=== PATIENT | male | born 2000 | race Caucasian/White ===

== ENCOUNTER → 2024-10-28 | Outpatient (CLI) | payer OTHER, SELFPAY | END | disposition home or self-care (01) | LOC: LAB 15:12 | PROVIDERS: PCP Family Medicine; Referring Provider Nurse Practitioner Acute Care; Visit Provider Nurse Practitioner Acute Care | DX: R19.4 Change in bowel habit (principal) | CPT/HCPCS: 36415; 84443 ==

== ENCOUNTER → 2024-11-01 | Outpatient (CLI) | payer OTHER, SELFPAY ==
--- OUTSIDE RECORDS SUMMARY | 2024-11-01 07:24 | XMS RPT_ITS | CCD ---
Author Organization [facility] Care Team Providers Care Quahogger Name Role Phone Jerson Jha MD Primary Care Provider Morales Borrero MD Primary Care Provider Morales Borrero MD Primary Care Provider MORALES BORRERO Primary Care Unavailable MORALES BORRERO Referring Unavailable MORALES BORRERO Attending Unavailable MORALES BORRERO Primary Care Unavailable MORALES BORRERO Attending Unavailable MORALES BORRERO Primary Care Unavailable Morales Borrero MD Primary Care Provider Dr. Jerson Jha MD Referring Provider Odell AS400 ANALYST-CJessie Attending Provider Dr. Morales Borrero MD Primary Care Provider Jerson Jha Referring Unavailable Morales Borrero Primary Care Unavailable Jessie Bain Attending Unavailable Morales Borrero Primary Care Unavailable Jessie Bain Referring Unavailable Jessie Bain Attending Unavailable Medications Current Medications Medication Drug Class(es) Dates Sig (Normalized) Sig (Original) benzoyl peroxide 0.05 mg/mg / erythromycin 0.03 mg/mg topical gel (5 sources) Macrolide, Macrolide Antimicrobial Start: 10-22-2021 Erythromycin-Matt oyl Peroxide (BENZAMYCIN) gel Indications: Acne, unspecified acne type Apply to affected area twice daily. 46.6 g 2 10/22/2021 Active Comment on above: Apply to affected ar ea twice daily. fluconazole 100 mg oral tablet (5 sources) Azole Antifungal Start: 10-18-2022 take 3 tablets by mouth every week fluconazole (DIFLUCAN) 100 mg tablet Indications: Tinea versicolor Take 3 tablets by mouth one time a week. And repeat in one week 6 tablet 10/18/2022 Active Start: 08-19-2022 End: 08-22-2022 take 1 tablet by mouth once daily fluconazole (DIFLUCAN) 100 mg tablet Indications: Tinea versicolor Take 1 tablet by mouth once daily for 3 days. 3 tablet 0 08/19/2022 08/22/2022 Active Start: 11-02-2021 End: 11-05-2021 take 1 tablet by mouth once daily fluconazole (DIFLUCAN) 100 mg tablet Indications: Tinea versicolor Take 1 tablet by mouth once daily for 3 days. 3 tablet 0 11/02/2021 11/05/2021 Active Comment on above: Take 1 tablet by kevin th once daily for 3 days. Take 3 tablets by mo [facility] one time a week. And repeat in one week ketoconazole 20 mg/ml medicated shampoo (2 sources) Azole Antifungal Start: 10-19-19 ketoconazole (NIZORAL) 2 % shampoo Indications: Tinea versicolor Apply to rash for five minutes and then wash off x 3 days. 120 mL 10/18/2022 Active Comment on above: Apply to rash for fi ve minutes and then wash off x 3 days. meloxicam 15 mg oral tablet (2 sources) Nonsteroidal Anti-inflammatory Drug Start: 10-19-19 take 1 tablet by mouth once daily at mealtime meloxicam (MOBIC) 15 mg tablet Indications: Acute pain of right knee Take 1 tablet by mouth once daily. With food. 10 tablet 10/18/2022 Active Comment on above: Take 1 tablet by kevin th once daily. With food. Completed/Discontinued Medications Medication Drug Class(es) Dates Sig (Normalized) Sig (Original) acetaminophen 325 mg / HYDROcodone bitartrate 5 mg oral tablet (1 source) Opioid Agonist Start: 08-02-2013 End: 10-28-2024 Hydrocodone-Acetam inophen 1 TABLET tablet Discontinued 1 {tbl} PO EVERY 4 HOURS NEEDED as needed for Pain 30 0 August 02, 2013 12:00am October 28, 2024 2:54pm montelukast 10 mg oral tablet (1 source) Leukotriene Receptor Antagonist Start: 08-02-2013 End: 10-28-2024 take 1 tablet by mouth once daily Montelukast (Singulair) 10 MG tablet Discontinued 10 mg PO DAILY August 02, 2013 12:00am October 28, 2024 2:46pm Problems Active Problems Problem Classification Problem Date Documented Da te Episodic/Chronic Immunizations and screening for infectious disease (1 source) Vaccination needed; Translations: [Encounter for immunization] Episodic Mycoses (4 sources) Pityriasis versicolor; Translations: [Pityriasis versicolor] Onset: 10-18-2022 Episodic Other gastrointestinal disorders (2 sources) Altered bowel function; Translations: [Change in bowel habit] 10-28-2024 Episodic Other gastrointestinal disorders (1 source) Constipation; Translations: [Constipation, unspecified] 10-28-2024 Episodic Other gastrointestinal disorders (1 source) Change in bowel habit; Translations: [Change in bowel habit] Onset: 10-28-2024 Episodic Other non-traumatic joint disorders (3 sources) Pain in right knee; Translations: [Pain in joint, lower leg] Onset: 10-18-2022 Episodic Other skin disorders (1 source) Acne; Translations: [Acne, unspecified] Episodic Past or Other Problems Problem Classification Problem Date Documented Date Episodic/Chronic Abdominal pain (1 source) Abdominal pain; Translations: [Unspecified abdominal pain] Onset: 11-21-2009 Resolved: 06-19-2013 06-19-2013 Episodic Asthma (1 source) Cough variant asthma; Translations: [Cough variant asthma] Onset: 03-27-2011 Resolved: 02-12-2019 02-12-2019 Chronic Esophageal disorders (1 source) Gastroesophageal reflux disease; Translations: [Gastro-esophageal reflux disease without esophagitis] Onset: 10-30-2009 Resolved: 06-19-2013 06-19-2013 Chronic Fracture of lower limb (2 sources) Other, multiple and ill-defined fractures of lower limb, closed; Translations: [Knee fracture] Onset: 08-04-2013 Resolved: 01-31-2015 01-31-2015 Episodic Results Test Name Value Interpretation Reference Range Facil ity Thyroid Stim Hormone (TSH)on 10-28-2024 TSH 1.700 uIU/mL Normal 0.300-4.200 [facility] Comment on above: Performed By: #### L [id number] #### [facility] [place], [address] CNOVon 10-18-2022 CNOV Office Visit (FAMPWS ) ROSITA ROWELL ([id number]) 2000 M Date Time Provider Department 10/18/22 1:20 PM MORALES BORRERO During your visit today, we recorded the following information about you: Pulse Blood pressure Weight Height 75/minute 122/76 69.5 kg 1.74 m Morales Borrero MD 10/18/2022 1:53 PM Signed Patient presents with: Follow Up HPI: Patient presents today for office visit for follow up. Still with tinea versicolor on back. No itching. Seems to be spreading when weather got warm. Has not seen dermatology. Given Fluconazole 100 mg X 3 days in past. Started to fade but not all the away. And came back. Definitely did get improvement with diflucan in the past. Complaints of right knee pain X 1 month. No injury. Did a lot of walking about a month ago while on vacation. Thinks maybe this triggered it. Refers to pain as sharp. Comes and goes. Walking doesn't bother it. Hurts if bent for too long. No falls. No redness or warmth. Is slowly improving. No trauma. Not giving out. MEDICATIONS: Current Outpatient Medications Medication Sig Erythromycin-Benzoyl Peroxide (BENZAMYCIN) gel Apply to affected area twice daily. No current facility-administered medications for this visit. ALLERGIES: ALLERGIES No Known Allergies PAST MEDICAL HISTORY Diagnosis Date Asthma Leg fracture, left PMH - PAST MEDICAL HISTORY OF Normal color vision Right radial fracture PAST SURGICAL HISTORY Procedure Laterality Date NONE FAMILY HISTORY Problem Relation Age of Onset Heart Paternal Grandfather from lung CA other (OR) Paternal Uncle in 30's Social History Tobacco Use Smoking status: Never Smokeless tobacco: Never Tobacco comments: No smoking in family Substance Use Topics Alcohol use: Never Comment: No alcohol use in home Drug use: Never Reviewed current medications, allergies, past medical history, surgical history, family history and social history today. REVIEW OF SYSTEMS All other reviewed and negative other than HPI. VITALS: BP 122/76 Pulse 75 Ht 174 cm (5' 8.5) Wt 69.5 kg (153 lb 3.2 oz) SpO2 98% BMI 22.96 kg/m? Last 4 Encounter Wt Readings: Date: Wt: 10/18/2022 69.5 kg (153 lb 3.2 oz) 11/02/2021 70.3 kg (155 lb) 10/22/2021 69.9 kg (154 lb 3.2 oz) 02/12/2019 68 kg (150 lb) PHYSICAL EXAMINATION: General appearance: Well appearing, alert, in no acute distress, well-hydrated, well nourished. Skin: hyperpigmented areas on back. Head: Normocephalic, no masses, lesions, tenderness or abnormalities KNEE:Location: right Redness: No. Warmth: No. Crepitus: No. Effusion: No. Joint line tenderness: No. Lateral tenderness: No. Medial tenderness: No. Drawer sign negative: No. Medial or lateral laxity: No. Radha's sign: No. ASSESSMENT/PLAN: 1. Tinea versicolor - ICD9: 111.0, ICD10: B36.0 (primary diagnosis) - did improve with treatment in the past. I believe we are on the right track. - Discussed risks and benefits of new medication with the patient. Advised them to call if any side effects or questions. Red flags for re-assessment reviewed with patient in detail. Call if symptoms worsen at all or if not better in one to two weeks Reviewed diagnosis and treatment options in detail. Questions were answered. Patient expressed understanding of treatment plan. - derm if continues. - FLUCONAZOLE 100 MG TABLET - KETOCONAZOLE 2 % SHAMPOO 2. Acute pain of right knee - ICD9: 719.46, ICD10: M25.561 -Discussed risks and benefits of new medication with the patient. Advised them to call if any side effects or questions. Red flags for re-assessment reviewed with patient in detail. Call if symptoms worsen at all or if not better in one to two weeks Reviewed diagnosis and treatment options in detail. Questions were answered. Patient expressed understanding of treatment plan. - XR KNEE GENERAL 4V AP BOTH/PA BOTH/LAT/MERC RIGHT - MELOXICAM 15 MG TABLET Morales Borrero MD Medical Decision Making: Problems: Low: 2+ self-limited or minor problems Data: Unique test(s) ordered: 1 Risk: Moderate: Drug management Medical Decision Making Level: 3 - Low Allergies As of Date: 10/18/2022 (No Known Allergies) Date Reviewed: 10/18/2022 Reviewed by: An Light - Fully Assessed Reason for Visit: Follow Up [171] Primary Visit Diagnosis:Tinea versicolor [B36.0] Other Visit Diagnosis:Acute pain of right knee [M25.561] Order(s):fluconazole (DIFLUCAN) 100 mg tabletTake 3 tablets by mouth one time a week. And repeat in one weekDisp: 6 tabletRfl: 0 ketoconazole (NIZORAL) 2 % shampooApply to rash for five minutes and then wash off x 3 days.Disp: 120 mLRfl: 0 XR KNEE GENERAL 4V AP BOTH/PA BOTH/LAT/MERC RIGHT [[id number]] Order #: [id number] FUTURE meloxicam (MOBIC) 15 mg tabletTake 1 tablet by mouth once edmond (more content not included)... Normal [facility] XR KNEE 4V AP/PA BOTH+LAT/ME R RTon 10-18-2022 XR KNEE 4V AP/PA BOTH+LAT/SHANITA RT * * *Final Report* * * DATE OF EXAM: Oct 18 2022 2:10PM WOX 5203 - XR KNEE 4V AP/PA BOTH+LAT/SHANITA RT / PROCEDURE REASON: Acute pain of right knee * * * * Physician Interpretation * * * * EXAM TITLE: XR KNEE 4V AP/PA BOTH+LAT/SHANITA RT EXAM DATE/TIME: 10/18/2022 2:10 PM COMPARISON: None. CLINICAL INDICATION/HISTORY: Pain TECHNIQUE: AP/PA, lateral and sunrise views of the right knee are presented. FINDINGS: No fractures or subluxations are noted. No obvious osteophyte formation. The joint spaces are well preserved. There is no evidence of joint effusion. The mineralization of the bones is normal. There is no significant soft tissue swelling. IMPRESSION: Negative 4 views of the right knee. Community Relations Police Lieutenant: THOMAS Transcribe Date/Time: Oct 18 2022 2:53P Dictated by : ANGELES RODNEY MD This examination was interpreted and the report reviewed and electronically signed by: ANGELES RODNEY MD on Oct 18 2022 2:54PM EST [id number] Normal [facility] XR KNEE GENERAL 4V AP BOTH/P A BOTH/LAT/MERC RIGHTon 10-18-2022 [facility] XR Knee - right 4 Viewson IMPRESSION: Negative 4 views of the right knee. Community Relations Police Lieutenant: THOMAS Transcribe Date/Time: Oct 18 2022 2:53P Dictated by : ANGELES RODNEY MD This examination was interpreted and the report reviewed and electronically signed by: ANGELES RODNEY MD on Oct 18 2022 2:54PM EST DIVISION OF RADIOLOGY * * *Final Report* * * DATE OF EXAM: Oct 18 2022 2:10PM WOX 5203 - XR KNEE 4V AP/PA BOTH+LAT/SHANITA RT / PROCEDURE REASON: Acute pain of right knee * * * * Physician Interpretation * * * * EXAM TITLE: XR KNEE 4V AP/PA BOTH+LAT/SHANITA RT EXAM DATE/TIME: 10/18/2022 2:10 PM COMPARISON: None. CLINICAL INDICATION/HISTORY: Pain TECHNIQUE: AP/PA, lateral and sunrise views of the right knee are presented. FINDINGS: No fractures or subluxations are noted. No obvious osteophyte formation. The joint spaces are well preserved. There is no evidence of joint effusion. The mineralization of the bones is normal. There is no significant soft tissue swelling. DIVISION OF RADIOLOGY Provider, [facility] - 10/18/2022 * * *Final Report* * * DATE OF EXAM: Oct 18 2022 2:10PM WOX 5203 - XR KNEE 4V AP/PA BOTH+LAT/SHANITA RT / PROCEDURE REASON: Acute pain of right knee * * * * Physician Interpretation * * * * EXAM TITLE: XR KNEE 4V AP/PA BOTH+LAT/SHANITA RT EXAM DATE/TIME: 10/18/2022 2:10 PM COMPARISON: None. CLINICAL INDICATION/HISTORY: Pain TECHNIQUE: AP/PA, lateral and sunrise views of the right knee are presented. FINDINGS: No fractures or subluxations are noted. No obvious osteophyte formation. The joint spaces are well preserved. There is no evidence of joint effusion. The mineralization of the bones is normal. There is no significant soft tissue swelling. IMPRESSION IMPRESSION: Negative 4 views of the right knee. Community Relations Police Lieutenant: PSCB Transcribe Date/Time: Oct 18 2022 2:53P Dictated by : ANGELES RODNEY MD This examination was interpreted and the report reviewed and electronically signed by: ANGELES RODNEY MD on Oct 18 2022 2:54PM EST [facility] Radiology Study observation (narrative) [facility] XR Knee - right 4 ViewsOrder ed By: [facility] Provider on 10-18-2022 [facility] CNOVon 11-02-2021 CNOV Office Visit (FAMPWS ) ROSITA ROWELL ([id number]) 2000 M Date Time Provider Department 11/02/21 3:20 PM [facility] During your visit today, we recorded the following information about you: Pulse Blood pressure Weight 80/minute 122/82 70.3 kg Morales Borrero MD 11/02/2021 3:49 PM Signed Patient presents with: Derm Problem: on back HPI: Patient presents today for office visit for acute visit. Has been there at least four years. No itching. Seems to be changing. Is on its back. Is spreading. One area has gotten bigger. No itching. MEDICATIONS: Current Outpatient Medications Medication Sig - Erythromycin-Benzoyl Peroxide (BENZAMYCIN) gel Apply to affected area twice daily. No current facility-administered medications for this visit. ALLERGIES: ALLERGIES No Known Allergies PAST MEDICAL HISTORY Diagnosis Date - Asthma - Leg fracture, left - PMH - PAST MEDICAL HISTORY OF Normal color vision - Right radial fracture PAST SURGICAL HISTORY Procedure Laterality Date - NONE FAMILY HISTORY Problem Relation Age of Onset - Heart Paternal Grandfather from lung CA - other (OR) Paternal Uncle in 30's Social History Tobacco Use - Smoking status: Never Smoker - Smokeless tobacco: Never Used - Tobacco comment: No smoking in family Substance Use Topics - Alcohol use: Never Comment: No alcohol use in home - Drug use: Never Reviewed current medications, allergies, past medical history, surgical history, family history and social history today. REVIEW OF SYSTEMS All other reviewed and negative other than HPI. VITALS: BP 122/82 Pulse 80 Wt 70.3 kg (155 lb) BMI 23.22 kg/m? Last 4 Encounter Wt Readings: Date: Wt: 11/02/2021 70.3 kg (155 lb) 10/22/2021 69.9 kg (154 lb 3.2 oz) 02/12/2019 68 kg (150 lb) 09/03/2017 60.3 kg (133 lb) (20 %, Z= -0.85)* PHYSICAL EXAMINATION: General appearance: Well appearing, alert, in no acute distress, well-hydrated, well nourished. Skin: multiple pigmented patches on back and left flank. Some scaly. Appears consistent with tinea versicolor. ASSESSMENT/PLAN: 1. Tinea versicolor - ICD9: 111.0, ICD10: B36.0 - Discussed risks and benefits of new medication with the patient. Advised them to call if any side effects or questions. - Call if symptoms worsen at all or if not better in one to two weeks - FLUCONAZOLE 100 MG TABLET Morales Borrero .[facility] Medical Decision Making Allergies As of Date: 11/02/2021 (No Known Allergies) Date Reviewed: 11/02/2021 Reviewed by: Keira Linares LPN - Fully Assessed Reason for Visit: Derm Problem [33] Cmt: on back Primary Visit Diagnosis:Tinea versicolor [B36.0] Order(s):fluconazole (DIFLUCAN) 100 mg tabletTake 1 tablet by mouth once daily for 3 days.Disp: 3 tabletRfl: 0 Prescriptions as of 11/02/2021 - fluconazole (DIFLUCAN) 100 mg tablet Take 1 tablet by mouth once daily for 3 days. - Erythromycin-Benzoyl Peroxide (BENZAMYCIN) gel Apply to affected area twice daily. Problem List As Of Date 11/02/2021 Noted Resolved Gastroesophageal reflux [K21.9] 10/30/2009 06/19/2013 Abdominal pain [R10.9] 11/21/2009 06/19/2013 Asthma, cough variant [J45.991] 03/27/2011 02/12/2019 Knee fracture [[id number]] 08/04/2013 01/31/2015 Closed fracture of lateral portion of left tibi*09/01/2013 01/31/2015 Prescriptions ordered this encounter Disp Refills Start End FLUCONAZOLE 100 MG TABLET 3 ta* 0 11/02/2021 11/02/2021 Route: ORAL Sig: Take 1 tablet by mouth once daily for 3 days. FLUCONAZOLE 100 MG TABLET 3 ta* 0 11/02/2021 11/05/2021 Route: ORAL Sig: Take 1 tablet by mouth once daily for 3 days. Medications Discontinued During This Encounter Prescriptions - fluconazole (DIFLUCAN) 100 mg tablet (Discontinued) Take 1 tablet by mouth once daily for 3 days. Disposition: Return if symptoms worsen or fail to improve. Follow-up and Disposition History for Encounter Date Provider Department Center 11/02/2021 [id number] BORRERO FAMPWS [facility] Encounter Status:Closed by MORALES BORRERO on 11/02/21 Normal [facility] Vital Signs Date Time Vital Sign Value Performing Clinician Facility 10-28-2024 14:43-0400 Body height 175.[address] Jerson Jha MD Work Phone: [phone] [place] [address] 10-28-2024 14:43-0400 Body mass index (BMI) [Ratio] 25 kg/m2 Dr. Jerson Jha MD Work Phone: [phone] [place] [address] 10-28-2024 14:43-0400 Body weight 76.[address] Jerson Jha MD Work Phone: [phone] [place] [address] 10-28-2024 14:43-0400 Diastolic blood pressure 83 mm[Hg] Dr. Jerson Jha MD Work Phone: [facility] 10-28-2024 14:43-0400 Heart rate 71 /min Dr. Jerson Jha MD Work Phone: [facility] 10-28-2024 14:43-0400 Respiratory rate 15 /min Dr. Jerson Jha MD Work Phone: [facility] 10-28-2024 14:43-0400 SaO2% (BldA) [Mass fraction] 97 % Dr. Jerson Jha MD Work Phone: [facility] 10-28-2024 14:43-0400 Systolic blood pressure 126 mm[Hg] Dr. Jerson Jha MD Work Phone: [facility] 10-18-2022 13:25-0400 Body height 174 cm Morales Borrero MD Work Phone: [facility] 10-18-2022 13:25-0400 Body weight 69.49 kg Morales Borrero MD Work Phone: [facility] 10-18-2022 13:25-0400 Diastolic blood pressure 76 mm[Hg] Morales Borrero MD Work Phone: [facility] 10-18-2022 13:25-0400 Heart rate 75 /min Morales Borrero MD Work Phone: [facility] 10-18-2022 13:25-0400 SaO2% (BldA) [Mass fraction] 98 % Morales Borrero MD Work Phone: [facility] 10-18-2022 13:25-0400 Systolic blood pressure 122 mm[Hg] Morales Borrero MD Work Phone: [facility] 11-02-2021 15:37-0400 Body weight 70.31 kg Morales Borrero MD Work Phone: [facility] 11-02-2021 15:37-0400 Diastolic blood pressure 82 mm[Hg] Morales Borrero MD Work Phone: [facility] 11-02-2021 15:37-0400 Heart rate 80 /min Morales Borrero MD Work Phone: [facility] 11-02-2021 15:37-0400 Systolic blood pressure 122 mm[Hg] Morales Borrero MD Work Phone: [facility] 10-22-2021 14:49-0400 Body height 174 cm Morales Borrero MD Work Phone: [facility] 10-22-2021 14:49-0400 Body temperature 98.01 [degF] Morales Borrero MD Work Phone: [facility] 10-22-2021 14:49-0400 Body weight 69.94 kg Morales Borrero MD Work Phone: [facility] 10-22-2021 14:49-0400 Diastolic blood pressure 86 mm[Hg] Morales Borrero MD Work Phone: [facility] 10-22-2021 14:49-0400 Heart rate 105 /min Morales Borrero MD Work Phone: [facility] 10-22-2021 14:49-0400 Respiratory rate 16 /min Morales Borrero MD Work Phone: [facility] 10-22-2021 14:49-0400 SaO2% (BldA) [Mass fraction] 97 % Morales Borrero MD Work Phone: [facility] 10-22-2021 14:49-0400 Systolic blood pressure 136 mm[Hg] Morales Borrero MD Work Phone: [facility] Encounters Encounter Date Encounter Type Care Provider Facility Start: 10-28-2024 End: 10-28-2024 Patient encounter procedure Jessie Bain NP-C -[facility] Work Phone: Start: 10-28-2024 End: 10-28-[address] Jerson Jha MD Work Phone: -[facility] Start: 10-18-2022 End: 10-19-2022 ambulatory MORALES BORRERO Facility:[facility] Start: 10-18-2022 End: 10-18-2022 Subsequent hospital visit by physician Brock [facility] Work Phone: Radiology Comment on above: Acute pain of right knee [M25.561] Start: 10-18-2022 End: 10-18-2022 Patient encounter procedure Morales Borrero MD Work Phone: [facility] Comment on above: Tinea versicolor (Pr imary Dx); Acute pain of right knee Start: 08-19-2022 ambulatory Morales Borrero MD Work Phone: [facility] Comment on above: FLUCONAZOLE Start: 11-02-2021 End: 11-02-2021 ambulatory MORALES BORRERO Facility:[facility] Start: 11-02-2021 End: 11-02-2021 Patient encounter procedure Morales Borrero MD Work Phone: [facility] Comment on above: Tinea versicolor (Pr imary Dx) Start: 10-22-2021 End: 10-22-2021 Patient encounter procedure Morales Borrero MD Work Phone: [facility] Comment on above: Acne, unspecified ac ne type (Primary Dx); Well adult exam; Need for vaccination Start: 10-22-2021 End: 10-22-2021 Patient encounter status Morales Borrero MD Work Phone: [facility] Procedures Date Procedure Procedure Detail Performing Clinician Start: 10-18-2022 Radiologic exam knee complete 4/more views Morales Borrero MD Work Phone: Start: 10-22-2021 Adult depression screening assessment Morales Borrero MD Work Phone: Plan of Treatment Date Care Activity Detail Author Start: 10-23-2031 Urine microalbumin profile [facility] Start: 12-14-2023 Influenza vaccination Influenza Vaccine (#1) [facility] Start: 12-13-2022 Influenza vaccination [facility] Start: 10-22-2022 Adult depression screening assessment DEPRESSION SCREENING [facility] Start: 04-14-2022 DEPRESSION ASSESSMENT DEPRESSION ASSESSMENT [facility] Start: 12-13-2021 Influenza vaccination INFLUENZA (#1) [facility] Start: 2016 Anxiety Screening Anxiety Screening [facility] Start: 2016 Depression Screening Depression Screening [facility] Start: 2016 HEPATITIS C SCREENING HEPATITIS C SCREENING [facility] Start: 2016 Hepatitis C screening Hepatitis C Screening [facility] Start: 2016 HIV SCREENING HIV SCREENING [facility] Start: 2016 HIV screening HIV Screening [facility] Start: 2014 Meningococcal B Vaccine: Consider Based On Risk (1 of 2 - Patient Seeks Protection) Meningococcal B Vaccine: Consider Based On Risk (1 of 2 - Patient Seeks Protection) [facility] Start: 2012 PEDS TO ADULT TRANSITION ANNUAL ASSESSMENT PEDS TO ADULT TRANSITION ANNUAL ASSESSMENT [facility] Start: 2010 PEDS TO ADULT TRANSITION INITIAL DISCUSSION PEDS TO ADULT TRANSITION INITIAL DISCUSSION [facility] Start: 2008 MENINGOCOCCAL B: Consider based on risk (1 of 2 - Risk Bexsero 2-dose series) MENINGOCOCCAL B: Consider based on risk (1 of 2 - Risk Bexsero 2-dose series) [facility] Thyroid stimulating hormone measurement [facility] [facility] Immunization Date Immunization Notes Care Provider Fa sarai 03-08-2023 influenza virus vacc ine, unspecified formulation Xr [place] Work Phone: [facility] 01-17-2022 COVID-19 vaccine, ag e 12+ yr, bivalent (GoCardless) Morales Borrero MD Work Phone: [facility] 10-22-2021 tetanus toxoid, redu krystal diphtheria toxoid, and acellular pertussis vaccine, adsorbed Morales Borrero MD Work Phone: [facility] 04-05-2021 Influenza, injectabl e, Madin Thor Canine Kidney, preservative free, quadrivalent Morales Borrero MD Work Phone: [facility] 01-06-2020 Human Papillomavirus 9-valent vaccine Morales Borrero MD Work Phone: [facility] 01-06-2020 influenza, injectabl e, quadrivalent, contains preservative Morales Borrero MD Work Phone: [facility] 05-11-2019 Human Papillomavirus 9-valent vaccine Morales Borrero MD Work Phone: [facility] 02-12-2019 Human Papillomavirus 9-valent vaccine Morales Borrero MD Work Phone: [facility] Work Phone: 02-06-2019 influenza, injectabl e, quadrivalent, contains preservative Morales Borrero MD Work Phone: [facility] 01-26-2018 influenza, injectabl e, quadrivalent, contains preservative Morales Borrero MD Work Phone: [facility] Work Phone: 01-21-2017 influenza, injectabl e, quadrivalent, contains preservative Morales Borrero MD Work Phone: [facility] Work Phone: 01-06-2016 influenza, injectabl e, quadrivalent, contains preservative Morales Borrero MD Work Phone: [facility] 01-30-2015 meningococcal polysaccharide (groups A, C, Y and W-135) diphtheria toxoid conjugate vaccine (MCV4P) Morales Borrero MD Work Phone: [facility] 01-12-2015 influenza, injectabl e, quadrivalent, contains preservative Morales Borrero MD Work Phone: [facility] Work Phone: 01-20-2014 influenza, seasonal, injectable Morales Borrero MD Work Phone: [facility] 01-16-2013 influenza virus vacc ine, unspecified formulation Morales Borrero MD Work Phone: [facility] 01-02-2012 influenza virus vacc ine, unspecified formulation Morales Borrero MD Work Phone: [facility] Work Phone: 01-02-2012 varicella virus vaccine Will john Borrero MD Work Phone: [facility] Work Phone: 01-19-2011 influenza virus vacc ine, unspecified formulation Morales Borrero MD Work Phone: [facility] Work Phone: 01-31-2010 Meningococcal, MCV4, unspecified conjugate formulation(groups A, C, Y and W-135) Morales Borrero MD Work Phone: [facility] 01-31-2010 tetanus toxoid, redu krystal diphtheria toxoid, and acellular pertussis vaccine, adsorbed Morales Borrero MD Work Phone: [facility] 01-16-2010 influenza virus vacc ine, unspecified formulation Morales Borrero MD Work Phone: [facility] 02-14-2009 novel influenza-H1N1 -09, all formulations Morales Borrero MD Work Phone: [facility] Work Phone: 01-07-2009 influenza virus vacc ine, live, attenuated, for intranasal use Morales Borrero MD Work Phone: [facility] Work Phone: 01-07-2009 influenza virus vacc ine, unspecified formulation Morales Borrero MD Work Phone: [facility] Work Phone: 01-07-2008 influenza virus vacc ine, live, attenuated, for intranasal use Morales Borrero MD Work Phone: [facility] Work Phone: 02-19-2007 influenza virus vacc ine, live, attenuated, for intranasal use Morales Borrero MD Work Phone: [facility] Work Phone: 02-05-2006 influenza virus vacc ine, live, attenuated, for intranasal use Morales Borrero MD Work Phone: [facility] Work Phone: 02-27-2005 influenza virus vacc ine, live, attenuated, for intranasal use Morales Borrero MD Work Phone: [facility] Work Phone: 01-26-2004 diphtheria, tetanus toxoids and acellular pertussis vaccine Morales Borrero MD Work Phone: [facility] Work Phone: 01-26-2004 measles, mumps and rubella virus vaccine Morales Borrero MD Work Phone: [facility] Work Phone: 01-26-2004 poliovirus vaccine, inactivated Morales Borrero MD Work Phone: [facility] Work Phone: 03-24-2003 influenza virus vacc ine, unspecified formulation Morales Borrero MD Work Phone: [facility] Work Phone: 07-08-2000 poliovirus vaccine, inactivated Morales Borrero MD Work Phone: [facility] Work Phone: 07-08-2000 varicella virus vaccine Shady Borrero MD Work Phone: [facility] Work Phone: 05-29-2000 diphtheria, tetanus toxoids and acellular pertussis vaccine Morales Borrero MD Work Phone: [facility] Work Phone: 05-29-2000 pneumococcal conjuga te vaccine, 7 valent Morales Borrero MD Work Phone: [facility] Work Phone: 04-02-2000 haemophilus influenz ae type b vaccine, HbOC conjugate Morales Borrero MD Work Phone: [facility] Work Phone: 04-02-2000 hepatitis B vaccine, pediatric or pediatric/adolescent dosage Morales Borrero MD Work Phone: [facility] Work Phone: 01-07-2000 measles, mumps and rubella virus vaccine Morales Borrero MD Work Phone: [facility] Work Phone: 01-07-2000 pneumococcal conjuga te vaccine, 7 valent Morales Borrero MD Work Phone: [facility] Work Phone: 10-11-1999 hepatitis B vaccine, pediatric or pediatric/adolescent dosage Morales Borrero MD Work Phone: [facility] Work Phone: 07-06-1999 diphtheria, tetanus toxoids and acellular pertussis vaccine Morales Borrero MD Work Phone: [facility] Work Phone: 07-06-1999 haemophilus influenz ae type b vaccine, HbOC conjugate Morales Borrero MD Work Phone: [facility] Work Phone: 07-06-1999 hepatitis B vaccine, pediatric or pediatric/adolescent dosage Mroales Borrero MD Work Phone: [facility] Work Phone: 05-07-1999 diphtheria, tetanus toxoids and acellular pertussis vaccine Morales Borrero MD Work Phone: [facility] Work Phone: 05-07-1999 haemophilus influenz ae type b vaccine, HbOC conjugate Morales Borrero MD Work Phone: [facility] Work Phone: 05-07-1999 poliovirus vaccine, inactivated Morales Borrero MD Work Phone: [facility] Work Phone: 03-05-1999 diphtheria, tetanus toxoids and acellular pertussis vaccine Morales Borrero MD Work Phone: [facility] Work Phone: 03-05-1999 haemophilus influenz ae type b vaccine, HbOC conjugate Morales Borrero MD Work Phone: [facility] Work Phone: 03-05-1999 poliovirus vaccine, inactivated Morales Borrero MD Work Phone: [facility] Work Phone: Payers Date Payer Category Payer Self-pay 2015 Unknown MMO MMO S [id number] 2015-Present [phone] [address] [address] [place] [address] Indemnity [id number] 2015 Unknown [id number] 2015 Unknown [id number] Unknown [id number] Unknown [id number] Social History Date Type Detail Facility Start: 05-13-2011 End: 08-02-2013 Tobacco smoking status NHIS Never smoked tobacco [facility] Start: 10-22-2021 End: 10-18-2022 Alcohol intake Lifetime non-drinker (finding) [facility] Start: 10-22-2021 End: 10-18-2022 History SDOH Alcohol Frequency 1 [facility] Start: 1998 Sex Assigned At Not on file [facility] Start: 10-12-2021 End: 11-02-2021 Exposure to SARS-CoV-2 (event) Not sure [facility] Start: 05-13-2011 End: 10-18-2022 Tobacco use and exposure Smokeless tobacco non-user [facility] Work Phone: Start: 10-18-2022 History SDOH Physica l Activity DPW 7 [facility] Start: 10-18-2022 History SDOH Housing Unable to Pay 3 [facility] Start: 10-18-2022 Tobacco Comment No smoking in family [facility] Start: 10-22-2021 End: 10-18-2022 History of Social function [facility] Start: 10-22-2021 End: 10-18-2022 Social connection and isolation panel [facility] In a typical week, h ow many times do you talk on the telephone with family, friends, or neighbors? Patient declined [facility] Do you feel stress - tense, restless, nervous, or anxious, or unable to sleep at night because your mind is troubled all the time - these days [OSQ] Not at all [facility] Start: 1998 Sex Assigned At Male [facility] Clinical Notes 09-01-2013 to 10-18-2022 Tati Yang, (R) - 10/18/2022 2:00 PM Hardeep Borrero MD - 10/18/2022 1:26 PM Hardeep Borrero MD - 11/02/2021 3:41 PM Hardeep Borrero MD - 10/22/2021 2:51 PM EDT Note Date & Type Note Facility 10-18-2022 Note HNO ID: [id number] Author: RT Renee(Camilo) Service: Nuclear Medicine Author Type: Technologist Type: Progress Notes Filed: 10/18/2022 2:10 PM Note Text: Radiology Service Progress Note PATIENT NAME: Rosita Rowell DATE OF SERVICE: October 18, 2022 TIME: 1:57 PM PATIENT IDENTITY VERIFICATION COMPLETED USING TWO (2) IDENTIFIERS: Name and Date of confirmed by patient verbally. FALL SCREENING: Has the patient had 2 falls in the last year or 1 fall with injury or currently using an Ambulatory Assistive Device (Walker, Cane, Wheelchair, Crutches, etc.)? No PATIENT GENDER DATA: Male PATIENT RELEVANT IMPLANT DATA REVIEWED: Not Applicable RADIOLOGY DEPARTMENT: General X-ray: Exam(s) Completed: Lower Extremity X-Ray(s): Knee, AP / Lat / Tunne / Merchant Right and Wt. Bearing PERIPHERAL IV DATA: Not applicable SIGNED BY: Tati Yang, RT(R) October 18, 2022 1:57 PM [facility] 10-18-2022 Note HNO ID: [id number] Author: Morales Borrero MD Service: ? Author Type: Physician Type: Progress Notes Filed: 10/18/2022 1:53 PM Note Text: Patient presents with: Follow Up HPI: Patient presents today for office visit for follow up. Still with tinea versicolor on back. No itching. Seems to be spreading when weather got warm. Has not seen dermatology. Given Fluconazole 100 mg X 3 days in past. Started to fade but not all the away. And came back. Definitely did get improvement with diflucan in the past. Complaints of right knee pain X 1 month. No injury. Did a lot of walking about a month ago while on vacation. Thinks maybe this triggered it. Refers to pain as sharp. Comes and goes. Walking doesn't bother it. Hurts if bent for too long. No falls. No redness or warmth. Is slowly improving. No trauma. Not giving out. MEDICATIONS: Current Outpatient Medications Medication Sig Erythromycin-Benzoyl Peroxide (BENZAMYCIN) gel Apply to affected area twice daily. No current facility-administered medications for this visit. ALLERGIES: ALLERGIES No Known Allergies PAST MEDICAL HISTORY Diagnosis Date Asthma Leg fracture, left PMH - PAST MEDICAL HISTORY OF Normal color vision Right radial fracture PAST SURGICAL HISTORY Procedure Laterality Date NONE FAMILY HISTORY Problem Relation Age of Onset Heart Paternal Grandfather from lung [place] other (OR) Paternal Uncle in 30's Social History Tobacco Use Smoking status: Never Smokeless tobacco: Never Tobacco comments: No smoking in family Substance Use Topics Alcohol use: Never Comment: No alcohol use in home Drug use: Never Reviewed current medications, allergies, past medical history, surgical history, family history and social history today. REVIEW OF SYSTEMS All other reviewed and negative other than HPI. VITALS: BP 122/76 Pulse 75 Ht 174 cm (5' 8.5) Wt 69.5 kg (153 lb 3.2 oz) SpO2 98% BMI 22.96 kg/m? Last 4 Encounter Wt Readings: Date: Wt: 10/18/2022 69.5 kg (153 lb 3.2 oz) 11/02/2021 70.3 kg (155 lb) 10/22/2021 69.9 kg (154 lb 3.2 oz) 02/12/2019 68 kg (150 lb) PHYSICAL EXAMINATION: General appearance: Well appearing, alert, in no acute distress, well-hydrated, well nourished. Skin: hyperpigmented areas on back. Head: Normocephalic, no masses, lesions, tenderness or abnormalities KNEE:Location: right Redness: No. Warmth: No. Crepitus: No. Effusion: No. Joint line tenderness: No. Lateral tenderness: No. Medial tenderness: No. Drawer sign negative: No. Medial or lateral laxity: No. Radha's sign: No. ASSESSMENT/PLAN: 1. Tinea versicolor - ICD9: 111.0, ICD10: B36.0 (primary diagnosis) - did improve with treatment in the past. I believe we are on the right track. - Discussed risks and benefits of new medication with the patient. Advised them to call if any side effects or questions. Red flags for re-assessment reviewed with patient in detail. Call if symptoms worsen at all or if not better in one to two weeks Reviewed diagnosis and treatment options in detail. Questions were answered. Patient expressed understanding of treatment plan. - derm if continues. - FLUCONAZOLE 100 MG TABLET - KETOCONAZOLE 2 % SHAMPOO 2. Acute pain of right knee - ICD9: 719.46, ICD10: M25.561 -Discussed risks and benefits of new medication with the patient. Advised them to call if any side effects or questions. Red flags for re-assessment reviewed with patient in detail. Call if symptoms worsen at all or if not better in one to two weeks Reviewed diagnosis and treatment options in detail. Questions were answered. Patient expressed understanding of treatment plan. - XR KNEE GENERAL 4V AP BOTH/PA BOTH/LAT/MERC RIGHT - MELOXICAM 15 MG TABLET Morales Borrero MD Medical Decision Making: Problems: Low: 2+ self-limited or minor problems Data: Unique test(s) ordered: 1 Risk: Moderate: Drug management Medical Decision Making Level: 3 - Low [facility] 10-18-2022 History of Present illness Narrative Radiology Service Progress Note PATIENT NAME: Rosita Rowell DATE OF SERVICE: October 18, 2022 TIME: 1:57 PM PATIENT IDENTITY VERIFICATION COMPLETED USING TWO (2) IDENTIFIERS: Name and Date of confirmed by patient verbally. FALL SCREENING: Has the patient had 2 falls in the last year or 1 fall with injury or currently using an Ambulatory Assistive Device (Walker, Cane, Wheelchair, Crutches, etc.)? No PATIENT GENDER DATA: Male PATIENT RELEVANT IMPLANT DATA REVIEWED: Not Applicable RADIOLOGY DEPARTMENT: General X-ray: Exam(s) Completed: Lower Extremity X-Ray(s): Knee, AP / Lat / Tunne / Merchant Right and Wt. Bearing PERIPHERAL IV DATA: Not applicable SIGNED BY: RT Renee(R) October 18, 2022 1:57 PM documented in this encounter [facility] 10-18-2022 History of Present illness Narrative Patient presents with: Follow Up HPI: Patient presents today for office visit for follow up. Still with tinea versicolor on back. No itching. Seems to be spreading when weather got warm. Has not seen dermatology. Given Fluconazole 100 mg X 3 days in past. Started to fade but not all the away. And came back. Definitely did get improvement with diflucan in the past. Complaints of right knee pain X 1 month. No injury. Did a lot of walking about a month ago while on vacation. Thinks maybe this triggered it. Refers to pain as sharp. Comes and goes. Walking doesn't bother it. Hurts if bent for too long. No falls. No redness or warmth. Is slowly improving. No trauma. Not giving out. MEDICATIONS: Current Outpatient Medications Medication Sig Erythromycin-Benzoyl Peroxide (BENZAMYCIN) gel Apply to affected area twice daily. No current facility-administered medications for this visit. ALLERGIES: ALLERGIES No Known Allergies PAST MEDICAL HISTORY Diagnosis Date Asthma Leg fracture, left PMH - PAST MEDICAL HISTORY OF Normal color vision Right radial fracture PAST SURGICAL HISTORY Procedure Laterality Date NONE FAMILY HISTORY Problem Relation Age of Onset Heart Paternal Grandfather from lung [place] other (OR) Paternal Uncle in 30's Social History Tobacco Use Smoking status: Never Smokeless tobacco: Never Tobacco comments: No smoking in family Substance Use Topics Alcohol use: Never Comment: No alcohol use in home Drug use: Never Reviewed current medications, allergies, past medical history, surgical history, family history and social history today. REVIEW OF SYSTEMS All other reviewed and negative other than HPI. VITALS: BP 122/76 Pulse 75 Ht 174 cm (5' 8.5) Wt 69.5 kg (153 lb 3.2 oz) SpO2 98% BMI 22.96 kg/m Last 4 Encounter Wt Readings: Date: Wt: 10/18/2022 69.5 kg (153 lb 3.2 oz) 11/02/2021 70.3 kg (155 lb) 10/22/2021 69.9 kg (154 lb 3.2 oz) 02/12/2019 68 kg (150 lb) PHYSICAL EXAMINATION: General appearance: Well appearing, alert, in no acute distress, well-hydrated, well nourished. Skin: hyperpigmented areas on back. Head: Normocephalic, no masses, lesions, tenderness or abnormalities KNEE:Location: right Redness: No. Warmth: No. Crepitus: No. Effusion: No. Joint line tenderness: No. Lateral tenderness: No. Medial tenderness: No. Drawer sign negative: No. Medial or lateral laxity: No. Radha's sign: No. ASSESSMENT/PLAN: 1. Tinea versicolor - ICD9: 111.0, ICD10: B36.0 (primary diagnosis) - did improve with treatment in the past. I believe we are on the right track. - Discussed risks and benefits of new medication with the patient. Advised them to call if any side effects or questions. Red flags for re-assessment reviewed with patient in detail. Call if symptoms worsen at all or if not better in one to two weeks Reviewed diagnosis and treatment options in detail. Questions were answered. Patient expressed understanding of treatment plan. - derm if continues. - FLUCONAZOLE 100 MG TABLET - KETOCONAZOLE 2 % SHAMPOO 2. Acute pain of right knee - ICD9: 719.46, ICD10: M25.561 -Discussed risks and benefits of new medication with the patient. Advised them to call if any side effects or questions. Red flags for re-assessment reviewed with patient in detail. Call if symptoms worsen at all or if not better in one to two weeks Reviewed diagnosis and treatment options in detail. Questions were answered. Patient expressed understanding of treatment plan. - XR KNEE GENERAL 4V AP BOTH/PA BOTH/LAT/MERC RIGHT - MELOXICAM 15 MG TABLET Morales Borrero MD Medical Decision Making: Problems: Low: 2+ self-limited or minor problems Data: Unique test(s) ordered: 1 Risk: Moderate: Drug management Medical Decision Making Level: 3 - Low documented in this encounter [facility] 11-02-2021 Note HNO ID: [id number] Author: Morales Borrero MD Service: ? Author Type: Physician Type: Progress Notes Filed: 11/02/2021 3:49 PM Note Text: Patient presents with: Derm Problem: on back HPI: Patient presents today for office visit for acute visit. Has been there at least four years. No itching. Seems to be changing. Is on its back. Is spreading. One area has gotten bigger. No itching. MEDICATIONS: Current Outpatient Medications Medication Sig - Erythromycin-Benzoyl Peroxide (BENZAMYCIN) gel Apply to affected area twice daily. No current facility-administered medications for this visit. ALLERGIES: ALLERGIES No Known Allergies PAST MEDICAL HISTORY Diagnosis Date - Asthma - Leg fracture, left - PMH - PAST MEDICAL HISTORY OF Normal color vision - Right radial fracture PAST SURGICAL HISTORY Procedure Laterality Date - NONE FAMILY HISTORY Problem Relation Age of Onset - Heart Paternal Grandfather from lung [place] - other (OR) Paternal Uncle in 30's Social History Tobacco Use - Smoking status: Never Smoker - Smokeless tobacco: Never Used - Tobacco comment: No smoking in family Substance Use Topics - Alcohol use: Never Comment: No alcohol use in home - Drug use: Never Reviewed current medications, allergies, past medical history, surgical history, family history and social history today. REVIEW OF SYSTEMS All other reviewed and negative other than HPI. VITALS: BP 122/82 Pulse 80 Wt 70.3 kg (155 lb) BMI 23.22 kg/m? Last 4 Encounter Wt Readings: Date: Wt: 11/02/2021 70.3 kg (155 lb) 10/22/2021 69.9 kg (154 lb 3.2 oz) 02/12/2019 68 kg (150 lb) 09/03/2017 60.3 kg (133 lb) (20 %, Z= -0.85)* PHYSICAL EXAMINATION: General appearance: Well appearing, alert, in no acute distress, well-hydrated, well nourished. Skin: multiple pigmented patches on back and left flank. Some scaly. Appears consistent with tinea versicolor. ASSESSMENT/PLAN: 1. Tinea versicolor - ICD9: 111.0, ICD10: B36.0 - Discussed risks and benefits of new medication with the patient. Advised them to call if any side effects or questions. - Call if symptoms worsen at all or if not better in one to two weeks - FLUCONAZOLE 100 MG TABLET [facility] Decision Making [facility] 11-02-2021 History of Present illness Narrative Patient presents with: Derm Problem: on back HPI: Patient presents today for office visit for acute visit. Has been there at least four years. No itching. Seems to be changing. Is on its back. Is spreading. One area has gotten bigger. No itching. MEDICATIONS: Current Outpatient Medications Medication Sig Erythromycin-Benzoyl Peroxide (BENZAMYCIN) gel Apply to affected area twice daily. No current facility-administered medications for this visit. ALLERGIES: ALLERGIES No Known Allergies PAST MEDICAL HISTORY Diagnosis Date Asthma Leg fracture, left PMH - PAST MEDICAL HISTORY OF Normal color vision Right radial fracture PAST SURGICAL HISTORY Procedure Laterality Date NONE FAMILY HISTORY Problem Relation Age of Onset Heart Paternal Grandfather from lung [place] other (OR) Paternal Uncle in 30's Social History Tobacco Use Smoking status: Never Smoker Smokeless tobacco: Never Used Tobacco comment: No smoking in family Substance Use Topics Alcohol use: Never Comment: No alcohol use in home Drug use: Never Reviewed current medications, allergies, past medical history, surgical history, family history and social history today. REVIEW OF SYSTEMS All other reviewed and negative other than HPI. VITALS: BP 122/82 Pulse 80 Wt 70.3 kg (155 lb) BMI 23.22 kg/m Last 4 Encounter Wt Readings: Date: Wt: 11/02/2021 70.3 kg (155 lb) 10/22/2021 69.9 kg (154 lb 3.2 oz) 02/12/2019 68 kg (150 lb) 09/03/2017 60.3 kg (133 lb) (20 %, Z= -0.85)* PHYSICAL EXAMINATION: General appearance: Well appearing, alert, in no acute distress, well-hydrated, well nourished. Skin: multiple pigmented patches on back and left flank. Some scaly. Appears consistent with tinea versicolor. ASSESSMENT/PLAN: 1. Tinea versicolor - ICD9: 111.0, ICD10: B36.0 - Discussed risks and benefits of new medication with the patient. Advised them to call if any side effects or questions. - Call if symptoms worsen at all or if not better in one to two weeks - FLUCONAZOLE 100 MG TABLET Morales Borrero .[facility] Medical Decision Making documented in this encounter [facility] 10-22-2021 History of Present illness Narrative Patient presents with: Establish Care: transfer care from HPI: Patient presents today for office visit for transfer care. HEAD/NECK: No changes in vision /hearing. No headaches, dizziness or faintness. No difficulty swallowing. AOx4. Taste and smell returned. Back to baseline. CHEST: No chest pain. No chest tightness. No SOB. No palpitations. No cough. No wheezing. Patient has not used rescue inhaler for years. Hx of COVID in mar 2020. Denies chronic COVID symptoms. ABDO: No tenderness. No nausea. No vomiting. No diarrhea. Voiding and having regular bowel movements. DERM: Patient presents with lipomas (Left arm. Left thigh. Right thigh and abdomen) REPRODUCTIVE: Patient states no issues. No hx of STDs. MSK: Hx of right arm and left leg. Stable - good range of motion. Patient voices no concerns. PSYCH: Patient states overall in a good mood. Sleep well. Good appetite and fluid intake. MEDICATIONS: No current outpatient medications on file. No current facility-administered medications for this visit. ALLERGIES: ALLERGIES No Known Allergies PAST MEDICAL HISTORY Diagnosis Date Asthma Leg fracture, left PMH - PAST MEDICAL HISTORY OF Normal color vision Right radial fracture PAST SURGICAL HISTORY Procedure Laterality Date NONE FAMILY HISTORY Problem Relation Age of Onset Heart Paternal Grandfather from lung [place] other (OR) Paternal Uncle in 30's Social History Tobacco Use Smoking status: Never Smoker Smokeless tobacco: Never Used Tobacco comment: No smoking in family Substance Use Topics Alcohol use: Never Comment: No alcohol use in home Drug use: Never Reviewed current medications, allergies, past medical history, surgical history, family history and social history today. REVIEW OF SYSTEMS All other reviewed and negative other than HPI. HEALTH MAINTENANCE: Reviewed health maintenance issues today and recommended the following in detail. MENINGOCOCCAL B: Consider based on risk(1 of 2 - Risk Bexsero 2-dose series) Never done HEPATITIS C SCREENING Never done HIV SCREENING Never done DTAP,TDAP,TD(7 - Td or Tdap) due on 02/01/2020 DEPRESSION SCREENING due on 02/13/2020 VITALS: BP 136/86 Pulse 105 Temp 36.7 C (98 F) (Left Tympanic) Resp 16 Ht 174 cm (5' 8.5) Wt 69.9 kg (154 lb 3.2 oz) SpO2 97% BMI 23.10 kg/m Last 4 Encounter Wt Readings: Date: Wt: 10/22/2021 69.9 kg (154 lb 3.2 oz) 02/12/2019 68 kg (150 lb) 09/03/2017 60.3 kg (133 lb) (20 %, Z= -0.85)* 01/21/2017 59.8 kg (131 lb 12 oz) (22 %, Z= -0.79)* PHYSICAL EXAMINATION: General appearance: Well appearing, alert, in no acute distress, well-hydrated, well nourished. Skin: scattered lipoma type lesions. Red flags for re-assessment reviewed with patient in detail. Acne lesions on forehead. Head: Normocephalic, no masses, lesions, tenderness or abnormalities Eyes: Anicteric sclera. Pupils are equally round and reactive to light. Extraocular movements are intact. Ears: External ears normal, canals clear Neck: Supple, no adenopathy; thyroid symmetric, normal size, no bruits Back: Normal exam Lungs: Lungs clear to auscultation. No wheezing, rhonchi, rales Heart: RRR without murmur, gallop, or rubs. No ectopy Abdomen: Normal abdominal exam, Abdomen soft, non-tender. Bowel sounds normal. No masses, organomegaly Extremities: No deformities, edema, skin discoloration, clubbing or cyanosis. Good capillary refill. Musculoskeletal: No joint swelling, deformity, or tenderness Peripheral pulses: Normal Neuro: Gait normal. Reflexes normal and symmetric. Sensation grossly intact. ASSESSMENT/PLAN: 1. Well adult exam - ICD9: V70.0, ICD10: Z00.00 (primary diagnosis) - Counseled on healthy diet and regular exercise 2. Need for vaccination - ICD9: V05.9, ICD10: Z23 - TDAP VACCINE AGE 7+ IM 3. Acne Use cleanser and trial of benzamycin. Morales Borrero documented in this encounter [facility] 09-01-2013 History of Past i llness Narrative Problem Noted Date Resolved Date Closed fracture of lateral portion of left tibia l plateau 09/01/2013 01/31/2015 Knee fracture 08/04/2013 01/31/2015 Asthma, cough variant 03/27/2011 02/12/2019 Abdominal pain 11/21/2009 06/19/2013 Gastroesophageal reflux 10/30/2009 06/20/19 14 documented as of this encounter (statuses as of 10/22/2021) [facility] History of Past illness Narrative* Problem Noted Date Resolved Date Closed fracture of lateral portion of left tibia l plateau 09/01/2013 01/31/2015 Knee fracture 08/04/2013 01/31/2015 Asthma, cough variant 03/27/2011 02/12/2019 Abdominal pain 11/21/2009 06/19/2013 Gastroesophageal reflux 10/30/2009 06/20/19 14 documented as of this encounter (statuses as of 11/02/2021) [facility] History of Past illness Narrative* Problem Noted Date Resolved Date Closed fracture of lateral portion of left tibia l plateau 09/01/2013 01/31/2015 Knee fracture 08/04/2013 01/31/2015 Asthma, cough variant 03/27/2011 02/12/2019 Abdominal pain 11/21/2009 06/19/2013 Gastroesophageal reflux 10/30/2009 06/20/19 14 documented as of this encounter (statuses as of 08/19/2022) [facility] History of Past illness Narrative* Problem Noted Date Resolved Date Closed fracture of lateral portion of left tibia l plateau 09/01/2013 01/31/2015 Knee fracture 08/04/2013 01/31/2015 Asthma, cough variant 03/27/2011 02/12/2019 Abdominal pain 11/21/2009 06/19/2013 Gastroesophageal reflux 10/30/2009 06/20/19 14 documented as of this encounter (statuses as of 10/18/2022) [facility] [place] [facility] Diagnosis Acne, unspecified acne type- Primary Well adult exam Routine general medical examination at a health care facility Need for vaccination Need for prophylactic vaccination and inoculation against unspecified single disease [facility] [place] [facility] Diagnosis Tinea versicolor- Primary Pityriasis versicolor documented in this encounter [facility] note* Diagnosis Tinea versicolor Pityriasis versicolor [facility] [place] [facility] Diagnosis Tinea versicolor- Primary Pityriasis versicolor Acute pain of right knee [facility] Diagnosis Acute pain of right knee [facility] Diagnosis Onset Date Resolution Status Admit Date Change in bowel habits acute Ju 2024 2:35pm Constipation noneactive October 28 2:35pm [employer] Work Phone: Reason for referral (narrative)* Diagnostic Procedure Only (Routine) - Closed Specialty Diagnoses / Procedures Referred By Elia smith Referred To Contact XR IMAGING Diagnoses Acute pain of right knee Procedures XR KNEE GENERAL 4V AP BOTH/PA BOTH/LAT/MERC RIGHT RADIOLOGIC EXAM KNEE COMPLETE 4/MORE VIEWS Morales Borrero MD [address] [place] [address] Xr Imaging Referral ID Status Reason Start Date Expiration Date V isits Requested Visits Authorized [id number] Closed Auto-Generate d Referral 10/18/2022 11/17/2023 1 1 [facility] for referral (narrative)* Diagnostic Procedure Only (Routine) - Closed Specialty Diagnoses / Procedures Referred By Contac t Referred To Contact XR IMAGING Diagnoses Acute pain of right knee Procedures XR KNEE GENERAL 4V AP BOTH/PA BOTH/LAT/MERC RIGHT RADIOLOGIC EXAM KNEE COMPLETE 4/MORE VIEWS Morales Borrero MD [address] [place] [address] [place] [id number] Referral ID Status Reason Start Date Expiration Date V isits Requested Visits Authorized [id number] Closed Auto-Generate d Referral 10/18/2022 11/17/2023 1 1 [facility] for referral (narrative)No reason for referral information availableRumsey [employer] Work Phone: Reason for visit Narrative* Diagnostic Procedure Only (Routine) - Closed Specialty Diagnoses / Procedures Referred By Contac t Referred To Contact XR IMAGING Diagnoses Acute pain of right knee Procedures XR KNEE GENERAL 4V AP BOTH/PA BOTH/LAT/MERC RIGHT RADIOLOGIC EXAM KNEE COMPLETE 4/MORE VIEWS Morales Borrero MD [address] [place] [address] [place] [id number] Referral ID Status Reason Start Date Expiration Date V isits Requested Visits Authorized [id number] Closed Auto-Generate d Referral 10/18/2022 11/17/2023 1 1 [facility] Summary Purpose Family History No Family History Records FoundNo Family History Records Found Advance Directives No Advanced Directives Records FoundNo Advanced Directives Records Found Chief Complaint and Reason for Visit Chief Complaint Admit Date Constipation October 28, 2024 2:35 pm Reason for Visit Admit Date Change in bowel habits October 28, 2024 2 :35pm Constipation October 28, 2024 2:35 pm Additional Source Comments Source Comments (unrecognize d section and content) In the event this informatio n is protected by the Federal Confidentiality of Alcohol and Drug Abuse Patient Records regulations: The Federal rules restrict any use of the information to criminally investigate or prosecute any alcohol or drug abuse patient.[facility] the event this information is protected by the Federal Confidentiality of Alcohol and Drug Abuse Patient Records regulations: The Federal rules restrict any use of the information to criminally investigate or prosecute any alcohol or drug abuse patient.[facility] the event this information is protected by the Federal Confidentiality of Alcohol and Drug Abuse Patient Records regulations: The Federal rules restrict any use of the information to criminally investigate or prosecute any alcohol or drug abuse patient.[facility] the event this information is protected by the Federal Confidentiality of Alcohol and Drug Abuse Patient Records regulations: The Federal rules restrict any use of the information to criminally investigate or prosecute any alcohol or drug abuse patient.[facility] the event this information is protected by the Federal Confidentiality of Alcohol and Drug Abuse Patient Records regulations: The Federal rules restrict any use of the information to criminally investigate or prosecute any alcohol or drug abuse patient.[facility] Reason for Visit (unrecogniz ed section and content) Reason Comments Establish Care transfer care from [facility] Reason Comments Derm Problem on back Reason Comments Follow Up Care Teams (unrecognized sec tion and content) [employer] Relationship Specialty Start Date End Date Jerson Jha MD [address] [place], [place] [address] PCP - General Pediatrics 09/03/21 [employer]ger Relationship Specialty Start Date End Date Morales Borrero MD [address] [place], [place] [id number] PCP - General Family Practice 10/24/21 [employer] Relationship Specialty Start Date End Date Morales Borrero MD [address] [place], [place] [address] PCP - General Family Medicine 10/24/21 [employer]ger Relationship Specialty Start Date End Date Morales Borrero MD [address] [place], [place] [id number] PCP - General Family Medicine 10/24/21 [employer]ger Relationship Specialty Start Date End Date Morales Borrero MD [address] [place] [address] PCP - General Family Medicine 10/24/21 Team Status: Active Member Role/Relationship Status Dates Dr. Jerson Jha MD Family Provider Active Dr. Morales Borrero MD Primary Care Provider Active Team Status: Inactive Member Role/Relationship Status Dates Dr. Jerson Jha MD Referring Provider Active S tart: October 28, 2024 End: October 28, 2024 [place] Attending Provider Active Start: October 28, 2024 End: October 28, 2024 Dr. Morales Borrero MD Primary Care Provider Active Start: October 28, 2024 End: October 28, 2024 (unrecognized sect ion and content) No Status Records FoundNo Status Records Found INFORMATION SOURCE (unrecogn ized section and content) DATE CREATED AUTHOR 10/22/2022 [facility] DATE CREATED AUTHOR AUTHOR'S ORGANIZ ATION 10/28/2024 [facility] Goals (unrecognized section and content) Goals may be documented in a n alternate section FOR RECORDS PERTAINING TO PATIENTS WHO ARE OR HAVE BEEN ENROLLED IN A CHEMICAL DEPENDENCY/SUBSTANCEABUSE PROGRAM, SOME INFORMATION MAY BE OMITTED. This clinical summary was aggregated from multiple sources. Caution should be exercised in using it in the provision of clinical care. This summary normalizes information from multiple sources, and as a consequence, information in this document may materially change the coding, format and clinical context of patient data. In addition, data may be omitted in some cases. CLINICAL DECISIONS SHOULD BE BASED ON THE PRIMARY CLINICAL RECORDS. [employer] provides no warranty or guarantee of the accuracy or completeness of information in this document.
--- NOTE | 2024-11-01 07:25 | US_ITS ---
EXAM: US Abdomen Limited CLINICAL INDICATION: BLOATING TECHNIQUE: Real-time ultrasound of the abdomen with image documentation. COMPARISON: No relevant prior studies available. FINDINGS: PANCREAS: Normal-appearing pancreas. KIDNEYS: Unremarkable. No stones. No hydronephrosis. The right kidney measures 9.9 x 5.0 x 5.2 cm. SPLEEN: Spleen measures up to 10.5 cm. US/Abdomen Limited IMPRESSION: No acute findings in the visualized abdomen. Reading [facility]
== END | disposition home or self-care (01) ==
PROVIDERS: PCP Family Medicine; Referring Provider Nurse Practitioner Acute Care; Visit Provider Nurse Practitioner Acute Care
DX: R19.4 Change in bowel habit (principal); R14.0 Abdominal distension (gaseous)
CPT/HCPCS: 76705